=== PATIENT | male | born 1985 | race Caucasian/White ===

== ENCOUNTER 2021-02-18 18:02 | Emergency (ER) | payer MEDICAID ==
[~2021-02-18] VITALS: Ht 157.5 cm; Wt 59.7 kg
[2021-02-18 18:05] VITALS: BP 134/80
[2021-02-18] MEDS ORDERED: ibuprofen 200mg tablet PO ONE (19:05)
== END 2021-02-18 19:45 | disposition home or self-care (01) ==
LOC: ER 18:02
DX: S51.011A Laceration without foreign body of right elbow, initial encounter (principal); R07.81 Pleurodynia; F20.9 Schizophrenia, unspecified; F41.9 Anxiety disorder, unspecified; Z88.0 Allergy status to penicillin; V00.131A Fall from skateboard, initial encounter; Y93.51 Activity, roller skating (inline) and skateboarding; Y92.89 Other specified places as the place of occurrence of the external cause; Y99.8 Other external cause status
CPT/HCPCS: 71046; 71100; 73080; 99284